=== PATIENT | female | born 1975 | race Caucasian/White ===

== ENCOUNTER 2017-11-19 02:09 | Emergency (ER) | payer SELFPAY ==
[~2017-11-19] VITALS: Ht 154.9 cm; Wt 76.0 kg
[2017-11-19 02:11] VITALS: BP 166/106; PULSE 99; RESP 20; TEMP 98; O2SAT 98
[2017-11-19] MEDS ORDERED: PERM5CRE TOPICAL (02:52)
--- NOTE | 2017-11-19 02:56 | PD ---
HPI Chief Complaint: Skin Problem Time Seen by Provider: 02:48 Travel History International Travel<30 days: No Contact w/Intl Traveler<30days: No Traveled to known affect area: No History of Present Illness HPI 42-year-old female presents for evaluation of a rash. Symptoms started yesterday. Rash is pruritic, constant, unrelieved with nniy-sur-[id number] Benadryl. The rash is found on her extremities. She reports that she is on vacation from [place], she has been camping in a tent at a campground for the past week with her significant other. The patient sleeps with a shirt on. Her significant other sleeps with a shirt off and his torso is affected by similar pruritic rash. Denies any new medications, creams, lotions, detergents , new clothing, new foods, cough, congestion, sore throat, fevers or chills, nausea or vomiting, abdominal pain, diarrhea. No other complaints. PFSH Past Medical History Medical History: Denies Significant Hx ?: Not Dilation and Curettage (D&C): Yes Past Surgical History Cholecystectomy: Yes Tonsillectomy: Yes Social History Alcohol Use: Yes Tobacco Use: Yes (/2 PPD) Substance Use: No Allergies-Medications (Allergen,Severity, Reaction): Coded Allergies: codeine (Verified Allergy, Intermediate, Nausea/Vomiting, 11/19/17) Reported Meds & Prescriptions Reported Meds & Active Scripts Active Permethrin Topical 5% (Permethrin) 5% Cream 1 Applic TOPICAL ONCE Review of Systems Except as stated in HPI: all other systems reviewed are Neg Physical Exam Narrative GENERAL: Well-developed well-nourished female in no acute distress SKIN: Warm and dry. Erythematous excoriated papular lesions are noted on the arms and legs. The rash spares the face, torso. No vesicles, no pustules, no petechiae, no purpura, wheals. HEAD: Atraumatic. Normocephalic. EYES: Pupils equal and round. No scleral icterus. No injection or drainage. ENT: No nasal bleeding or discharge. Mucous membranes pink and moist. NECK: Trachea midline. No JVD. CARDIOVASCULAR: Regular rate and rhythm. No murmur appreciated. RESPIRATORY: No accessory muscle use. Clear to auscultation. Breath sounds equal bilaterally. GASTROINTESTINAL: Abdomen soft, non-tender, nondistended. Hepatic and splenic margins not palpable. MUSCULOSKELETAL: No obvious deformities. No clubbing. No cyanosis. No edema. NEUROLOGICAL: Awake and alert. No obvious cranial nerve deficits. Motor grossly within normal limits. Normal speech. PSYCHIATRIC: Appropriate mood and affect; insight and judgment normal. Data Data Last Documented VS Vital Signs Date Time Temp Pulse Resp B/P (MAP) Pulse Ox O2 Delivery O2 Flow Rate FiO2 11/19/17 02:11 98.0 99 20 166/106 (126) 98 Orders Orders Prednisone (Deltasone) (11/19/17 03:00) Diphenhydramine Inj (Benadryl Inj) (11/19/17 03:00) [facility] Medical Decision Making Medical Screen Exam Complete: Yes Emergency Medical Condition: Yes Medical Record Reviewed: Yes Differential Diagnosis Chiggers, allergic contact dermatitis, scabies, viral exanthem, pityriasis rosea Narrative Course 42-year-old female presents with a widespread pruritic rash in the setting of her having a similar rash, currently staying at a tent in a campground, vacation from [place]. The patient has excoriated papular rash which is very suspicious for chiggers given hher clinical history. Recommended washing all clothing in hot water and leaving the campground to stay at a hotel. The patient will be given a dose of Benadryl and prednisone here and, to cover for scabies, will be discharged with permethrin prescription. Diagnosis Primary Impression: Chiggers Additional Instructions: Medication as prescribed. Khxb-[id number]-[id number] Benadryl 50 mg every 6 hours for itching. Do not drive or drink alcohol or operate heavy machinery when taking Benadryl. Use [id number] calamine lotion for itching. Wash all clothing in hot water and leave campground. Return for any emergent medical conditions. Med/Other Pt SpecificInfo: Prescription(s) given Scripts Permethrin Topical 5% (Permethrin Topical 5%) 5% Cream 1 APPLIC TOPICAL ONCE for Scabies, #1 TUBE 1 Refill Prov: Kusum Han MD 11/19/17 Disposition: 01 DISCHARGE HOME Condition: Stable Clint Moyer Nov 19, 2017 02:56
[2017-11-19] MEDS ORDERED: predniSONE 20 MG TAB PO ONE (03:00)
[2017-11-19] MEDS ORDERED: diphenhydrAMINE HCL 50 MG/ML VIAL IM ONE (03:00)
== END 2017-11-19 03:20 | disposition home or self-care (01) ==
LOC: NEPD 02:09
DX: B88.0 Other acariasis (principal); F17.200 Nicotine dependence, unspecified, uncomplicated
CPT/HCPCS: 96372; 99283; J1200; J7512